=== PATIENT | female | born 1960 | race Caucasian/White ===

== ENCOUNTER → 2018-05-15 | Day surgery (SDC) | payer OTHER ==
[~2018-05-15] MED LIST: CLONAZEPAM1 MG PO; COZAAR50 MG PO; JANUVIA100 MG PO; NEURONTIN300 MG PO; PERCOCET 5-3251 EACH PO; RECTICARE30 GM TOP
== END | disposition home or self-care (01) ==
LOC: ADM 05-08 10:30 → CIR.AMB 06:10
DX: K64.4 Residual hemorrhoidal skin tags (principal); K64.2 Third degree hemorrhoids; K64.8 Other hemorrhoids; K64.5 Perianal venous thrombosis